=== PATIENT | male | born 1960 | race Caucasian/White ===

== ENCOUNTER 2021-04-17 22:48 | Emergency (ER) | payer OTHER ==
[~2021-04-17] VITALS: Ht 180.3 cm; Wt 84.4 kg
--- NOTE | 2021-04-17 23:11 | NUR ---
PT AAOX4. BIBRA FROM [facility] C/O MIDSTERNAL CP X1HR STAND IN. NON RADIATING. PT IS DEAF BUT ABLE TO WRITE ON PAPER TO COMMUNICATE. PLACED IN A GOWN, ON [employer]ICE MANAGER, AND PULSE OX. AWAITING ER MD FOR EVAL AND ORDERS. IV PLACED IN LAC 18G, BLOOD WORK COLLECTED, SENT TO LAB.
[2021-04-17] MEDS ORDERED: NITROGLYCERIN 0.4 MG/TAB BOTTLE ONE (23:30)
[2021-04-17] MEDS ORDERED: ASPIRIN 325 MG TABLET PO ONE (23:30)
[2021-04-17] MEDS ORDERED: NITROGLYCERIN 0.4 MG/TAB BOTTLE SL ONE (23:30)
[2021-04-17] MEDS ORDERED: ASPIRIN 325 MG TABLET ONE (23:31)
[2021-04-17 23:35] LABS: BASOPHILS # (AUTO) 0.1 K/uL (0.0-0.2); EOSINOPHILS % (AUTO) 2.3 % (0.0-6.0); HEMATOCRIT 45 % (39-51); LYMPHOCYTES # (AUTO) 2.5 K/uL (0.8-4.8); LYMPHOCYTES % (AUTO) 38.7 % (20.0-44.0); MEAN CORPUSCULAR HGB CONC 33 g/dl (31.0-36.0); MEAN CORPUSCULAR VOLUME 96 fL (80-96); MONOCYTES # (AUTO) 0.3 K/uL (0.1-1.30); NEUTROPHILS # (AUTO) 3.4 K/uL (1.8-8.9); PLATELET COUNT (AUTO) 260 K/uL (150-450); RED BLOOD CELL COUNT(AUTO) 4.69 MIL/uL (4.5-6.0); WHITE BLOOD COUNT (AUTO) 6.4 K/uL (4.3-11.0)
[2021-04-17] MEDS ORDERED: MORPHINE SULFATE INJ 4 MG/ML DISP.SYRIN ONE (23:42)
[2021-04-17 23:43] LABS: CALCIUM, SERUM 9.4 mg/dL (8.5-10.1); CARBON DIOXIDE 28 mmol/L (21-32); CHLORIDE 103 mmol/L (98-107); CREATININE 0.8 mg/dL (0.6-1.3); GLUCOSE 230 mg/dL (74-106); POTASSIUM 4.2 mmol/L (3.5-5.1); SODIUM SERUM 139 mmol/L (136-145); UREA NITROGEN, BLOOD 17 mg/dL (7-18)
--- NOTE | 2021-04-17 23:49 | NUR ---
GAVE 1 MORE NITRO SL DUE TO PT C/O CP 11/26. I DID RE EVAL THE CP AFTER 5 MINS, PT STATED CP WAS GONE. PT REMAINS ON SALES COORDINATOR AND PULSE OX. VSS. NO ACUTE DISTRESS NOTED.
[2021-04-18] MEDS ORDERED: MORPHINE SULFATE INJ 4 MG/ML DISP.SYRIN ONE ×2 (00:55→08:11)
[2021-04-18] MEDS ORDERED: HYDROCODONE/APAP 5/325MG TABLET PO PRN (01:00)
[2021-04-18] MEDS ORDERED: ENOXAPARIN SODIUM 40 MG/0.4 ML DISP.SYRIN SQ SCH (01:00)
[2021-04-18] MEDS ORDERED: DEXTROSE 50%-WATER 50 ML DISP.SYRIN IV PRN (01:00)
[2021-04-18] MEDS ORDERED: MAG HYDROX/AL HYDROX/SIMETH 30 ML UDC PO PRN (01:00)
[2021-04-18] MEDS ORDERED: Z GUARD REMEDY 2 OZ OINT TP PRN (01:00)
[2021-04-18] MEDS ORDERED: INSULIN REGULAR, HUMAN 100 UNIT/ML 3 ML VIAL SQ PRN (01:00)
[2021-04-18] MEDS ORDERED: ONDANSETRON HCL/PF 4 MG/2 ML VIAL IVP PRN (01:00)
[2021-04-18] MEDS ORDERED: NITROGLYCERIN 0.4 MG/TAB BOTTLE SL PRN (01:00)
[2021-04-18] MEDS ORDERED: MORPHINE SULFATE INJ 2 MG/ML DISP.SYRIN IV PRN (01:00)
[2021-04-18] MEDS ORDERED: TEMAZEPAM 15 MG CAPSULE PO PRN (01:00)
[2021-04-18] MEDS ORDERED: MAGNESIUM HYDROXIDE 30 ML UDC PO PRN (01:00)
[2021-04-18] MEDS ORDERED: ACETAMINOPHEN 325 MG TABLET PO PRN (01:00)
--- NOTE | 2021-04-18 01:00 | NUR ---
VERBAL ORDER OF NORCO 5-325 MG PO
--- NOTE | 2021-04-18 01:26 | NUR ---
PER BUNNY VILLASEÑOR PT BEING TRANSFERRED TO [facility] TELE UNIT. ACCEPTING DR CHRISTINA. FOR PEER TO PEER [phone]. CM WORKING ON BED AND TRANSPORTATION. PLEASE SEND FACESHEET AND COVID RESULT TO RN SUPERVISION [phone]. DIRECT LINE TO CM [phone]
[2021-04-18] MEDS ORDERED: HYDROCODONE/APAP 5/325MG TABLET PO ONE ×2 (01:30→03:00)
--- NOTE | 2021-04-18 01:50 | NUR ---
PT ACCEPTED TO [facility] BY DR CHRISTINA. ROOM 224, # FOR REPORT [phone]. [facility] ETA 1000
--- NOTE | 2021-04-18 02:43 | NUR ---
verbal order for norco 5-325mg po
--- NOTE | 2021-04-18 04:47 | NUR ---
lab at bedside
--- NOTE | 2021-04-18 05:00 | NUR ---
pt walked to restroom. needs met
--- NOTE | 2021-04-18 05:37 | NUR ---
pt given a snack, needs met
--- NOTE | 2021-04-18 06:15 | NUR ---
Patient is resting comfortably in bed with eyes closed. Easily aroused. VSS
[2021-04-18] MEDS ORDERED: BLOOD SUGAR DIAGNOSTIC 1 EACH STRIP IN SCH (07:30)
[2021-04-18] MEDS ORDERED: MORPHINE SULFATE INJ 2 MG/ML DISP.SYRIN IV ONE ×2 (08:00)
[2021-04-18 08:40] VITALS: BP 148/79
[2021-04-18] MEDS ORDERED: PANTOPRAZOLE 40 MG VIAL IV SCH (09:00)
--- NOTE | 2021-04-18 09:59 | NUR ---
REPORT GIVEN TO MAUDE COOK OF [facility]
--- NOTE | 2021-04-18 10:27 | NUR ---
Patient transferred via ambulance to [facility] in stable condition.
[2021-04-19] MEDS ORDERED: ASPIRIN 81 MG TAB.CHEW PO SCH (09:00)
== END 2021-04-18 10:29 | disposition short-term general hospital (02) ==
LOC: ER 22:53
DX: R07.9 Chest pain, unspecified (principal); K08.89 Other specified disorders of teeth and supporting structures; E78.5 Hyperlipidemia, unspecified; I10 Essential (primary) hypertension; F25.9 Schizoaffective disorder, unspecified; Z20.822 Contact with and (suspected) exposure to COVID-19; E11.65 Type 2 diabetes mellitus with hyperglycemia
CPT/HCPCS: 36415 ×2; 71045; 80048; 83036; 83880; 84484 ×2; 85025; 87081; 87426; 93005; 96374; 96376; 99291; C9803; J2270 ×2; J1815